=== PATIENT | female | born 1925 | race Caucasian/White ===

== ENCOUNTER → 2017-01-05 | Outpatient (CLI) | payer BC ==
[~2017-01-05] MED LIST: ACET-1256 PO; ASPI81TA28 PO; ATOR-24 PO; CALCTAB5 PO; CHOL100027 PO; DILT-115 PO; FERR1TAB23 PO; HYDR-5688 PO; HYG/25 PO; INSDGI SC; INSDGIPEN SC; METO-551 PO; MULT-188 PO; PRLSR20 PO; REPA2TAB12 PO; SULF800T23 PO; TELM80TA PO
--- NOTE | 2017-01-05 14:32 | DIAGNOSTIC IMAGING REPORT ---
RIGHT SHOULDER 3 VIEWS CLINICAL HISTORY: Right shoulder pain. FINDINGS: 3 views of the right shoulder are obtained. No prior studies are available for comparison at the time of dictation. The skeletal structures are osteopenic. No fracture or dislocation is seen. The glenohumeral articulation appears preserved. There is mild productive degenerative change at the acromioclavicular joint. A degenerative geode is seen in the humeral head. The overlying soft tissues are within normal limits. Partially imaged right lung parenchyma appears clear. IMPRESSION: Osteopenia and mild degenerative change as above. No acute bony abnormality is identified in the right shoulder. Electronically signed by: Rolf Wright M.D. 01/05/2017 2:31 PM Dictated Date/Time: 01/05/2017 2:30 PM
== END | disposition home or self-care (01) ==
LOC: C.RAD1850 14:07
PROVIDERS: ATTEND Internal Medicine
DX: M85.811 Other specified disorders of bone density and structure, right shoulder (principal)

== ENCOUNTER → 2017-01-16 | Outpatient (CLI) | payer BC ==
[2017-01-17 06:52] LABS: ESTIMATED AVERAGE GLUCOSE 249 mg/dl; HA1C FLAG Normal (Normal)
== END | disposition home or self-care (01) ==
LOC: C.LAB1850 15:31
PROVIDERS: ATTEND Internal Medicine
DX: I12.9 Hypertensive chronic kidney disease with stage 1 through stage 4 chronic kidney disease, or unspecified chronic kidney disease (principal); E11.22 Type 2 diabetes mellitus with diabetic chronic kidney disease; N18.4 Chronic kidney disease, stage 4 (severe); R80.9 Proteinuria, unspecified; N25.81 Secondary hyperparathyroidism of renal origin; E55.9 Vitamin D deficiency, unspecified

== ENCOUNTER → 2017-02-18 | Outpatient (CLI) | payer BC ==
[2017-02-18 13:03] LABS: HEMATOCRIT 31.5 % (37-47); MEAN CELL VOLUME 88.7 fL (80-100); MEAN CORPUSCULAR HEMOGLOBIN 28.2 pg (25-34); MEAN CORPUSCULAR HGB CONC 31.7 g/dl (32-36); MEAN PLATELET VOLUME 10.4 fL (7.4-10.4); PLATELET COUNT 272 K/uL (130-400); RED BLOOD COUNT 3.55 M/uL (4.2-5.4); WHITE BLOOD COUNT 6.12 K/uL (4.8-10.8)
[2017-02-18 13:08] LABS: URINE APPEARANCE CLOUDY (CLEAR); URINE BILIRUBIN NEG (NEG); URINE COLOR YELLOW; URINE EPITHELIAL CELL AUTO >30 /lpf (0-5); URINE NITRITE NEG (NEG); URINE SPECIFIC GRAVITY 1.017 (1.000-1.030); UROBILINOGEN NEG (NEG)
[2017-02-18 13:10] LABS: MANUAL MICROSCOPIC REQUIRED? NO; REVIEW REQ? NO
[2017-02-18 13:33] LABS: ALT/SGPT 16 U/L (12-78); AST/SGOT 7 U/L (15-37); BLOOD UREA NITROGEN 32 mg/dl (7-18); CARBON DIOXIDE 25 mmol/L (21-32); CHLORIDE 107 mmol/L (98-107); CHOLESTEROL 164 mg/dl (0-200); GLUCOSE 204 mg/dl (70-99); POTASSIUM 4.7 mmol/L (3.5-5.1); SODIUM 140 mmol/L (136-145)
[2017-02-18 13:37] LABS: CALCIUM 9.4 mg/dl (8.5-10.1)
[2017-02-18 13:38] LABS: FERRITIN 135.9 ng/ml (8.0-388.0); HDL CHOLESTEROL 33 mg/dl; LDL CHOLESTEROL CALCULATED 88 mg/dl; PHOSPHORUS 3.4 mg/dl (2.5-4.9); TOTAL IRON BINDING CAPACITY 211 mcg/dl (250-450); TRIGLYCERIDES 213 mg/dl (0-150); VERY LOW DENSITY LIPOPROT CALC 43 mg/dl
[2017-02-18 13:44] LABS: URINE PROTIEN/CREAT RATIO 0.4 (0-0.2); URINE TOTAL PROTEIN 45.2 mg/dl (0-11.9)
== END | disposition home or self-care (01) ==
LOC: C.LABBC 11:03
PROVIDERS: ATTEND Internal Medicine Cardiovascular Disease
DX: E78.5 Hyperlipidemia, unspecified (principal); R80.9 Proteinuria, unspecified; I10 Essential (primary) hypertension; N18.4 Chronic kidney disease, stage 4 (severe); N25.81 Secondary hyperparathyroidism of renal origin; E55.9 Vitamin D deficiency, unspecified